=== PATIENT | female | born 1975 | race Caucasian/White ===

== ENCOUNTER 2024-05-12 07:21 | Emergency (ER) | payer MEDICAID ==
[~2024-05-12] VITALS: Ht 160 cm; Wt 65.8 kg
[2024-05-12 08:44] LABS: BASOPHILS % (AUTO) 0.3 % (0.0-2.0); HEMATOCRIT 40.2 % (31.2-41.9); LYMPHOCYTES # (AUTO) 1.1 K/uL (0.8-4.8); LYMPHOCYTES % (AUTO) 25.5 % (20.5-51.5); MEAN CORPUSCULAR HGB CONC 35 g/dL (32.3-35.6); MONOCYTES # (AUTO) 0.9 K/uL (0.1-1.30); MONOCYTES % (AUTO) 19.8 % (0.0-11.0); NEUTROPHILS # (AUTO) 2.4 K/uL (1.8-8.9); NEUTROPHILS % (AUTO) 54.4 % (38.5-71.5); PLATELET COUNT (AUTO) 217 K/uL (179-408); RED BLOOD CELL COUNT(AUTO) 4.37 MIL/uL (3.63-4.92); WHITE BLOOD COUNT (AUTO) 4.4 K/uL (3.8-11.8)
[2024-05-12 08:47] LABS: DIFFERENTIAL COMMENT 1
[2024-05-12 09:19] LABS: LYMPHOCYTES % (MANUAL) 26 % (20-40); MONOCYTES % (MANUAL) 20 % (2-10); NEUTROPHILS % (MANUAL) 54 % (42-75); PLATELET ESTIMATE ADEQUATE
[2024-05-12 09:19] LABS: CALCIUM 9.1 mg/dL (8.5-10.1); CARBON DIOXIDE 29 mmol/L (21-32); CHLORIDE 109 mmol/L (98-107); CREATININE 0.8 mg/dL (0.6-1.3); GLUCOSE 81 mg/dL (74-106); POTASSIUM 3.9 mmol/L (3.5-5.1); SODIUM SERUM 146 mmol/L (136-145); UREA NITROGEN, BLOOD 17 mg/dL (7-18)
[2024-05-12 09:32] LABS: ALANINE AMINOTRANSFERASE 35 U/L (14-59); ALBUMIN 3.6 g/dL (3.4-5.0); ALKALINE PHOSPHATASE 101 U/L (50-136); ASPARTATE AMINOTRANSFERASE 24 U/L (15-37); BILIRUBIN,DIRECT 0.1 mg/dL (0.0-0.2); BILIRUBIN,TOTAL 0.5 mg/dL (0.2-1.0); NT-PRO BNP 47 pg/mL (0-125); TOTAL PROTEIN, SERUM 7.5 g/dL (6.4-8.2)
[2024-05-12] MEDS ORDERED: IOHEXOL 350 100 ML INFUS..BTL ONE (10:22)
[2024-05-12] MEDS ORDERED: NABU-140 PO (12:10)
[2024-05-12 12:11] VITALS: BP 124/56; O2SAT 99
== END 2024-05-12 12:13 | disposition home or self-care (01) ==
LOC: ER 07:21
DX: R55 Syncope and collapse (principal); M54.50 Low back pain, unspecified; M79.604 Pain in right leg; M79.605 Pain in left leg; R07.9 Chest pain, unspecified; I26.99 Other pulmonary embolism without acute cor pulmonale; J45.909 Unspecified asthma, uncomplicated; R10.2 Pelvic and perineal pain
CPT/HCPCS: 99291; 71275; 93970; 71045; 80076; 80048; 83880; 85025; 85379; 85651; 85730; 84484; 84702; 36415; 70496; 70498; 72125; 93005; 70450; 85007; Q9967; 70030-TC; A4606; A4663